=== PATIENT | female | born 1945 | race Caucasian/White ===

== ENCOUNTER 2018-05-05 10:30 | Outpatient (RCR) | payer OTHER, SELFPAY ==
--- NOTE | 2018-03-08 11:00 | HP.OTREVAL ---
Westley Seay, It has been my pleasure to treat TEN BRONSON over the last 8 visits for Mallet Finger. Please see the progress note below for an update on the occupational therapy plan of care! Subjective: Arrived and noted that things going well. Noted lag still present. Objective/Function: Completed new measurements today. Increased extensor lag noted when out of splint and has been wearing splint for all exercises. Completed ROM measurements and are as follows: RF MCP WNL, L 0-86, PIP RWNL, L 0-74- at times hyperext noted, DIP R WNL, L -10--35 of for flexion with inability to active move to extension. Completed extension measurement from neutral pronated position at table top: PIP R WNL , L AROM 0--29; DIP ext/ R WNL, L passively able to move from 0--29. She exhibits very slight extension of DIP when joint is supported. Strength is as follows: Gas Well Drilling Manager 52, L 39 -completed out of splint and extensor lad increased to -18 forward flexed position, lateral R 18, L 15; tripod R 13, L 11 extensor lag post -12 forwardly flexed position. Plan Frequency: 2x /Week Duration: 2-4 Weeks Visits in this POC: 4-8 Plan: continue pOC for 2x weekly for 2-4 weeks. She returns to Dr. Seay tomorrow. We have been trialing low FES to promote increased strength of extensor muscle of hand in and out of splint to help decrease and monitor extensor lag. She was originally fitted with Stax splint that was modified to promote fit. That splint has recently become loose, but she is unable to fit next size down. Gutter splint formed to try and place in 15-degrees hypperext position. Will continue to adjust gutter to promote hyperext. She has been completing exercises in splint due to increased extensor lag with movement. Worked on increased ROM of PIP and extension of DIP, PIP as well as general strength and ability to return to PLOF with L hand. Goals - Goals Goal:: Sarah to increase L combat engineer by 5-7 lbs to promote increased strenght and abilityt o manipulate L hand as needed for ADL/AIDls by d/c. Goal:: Sarah to be able to complete AROM of L MF of PIP, DIP similar to R PIP and DIP to promote increased Jacob nd decreased stiffness of PIP while maintain jt integrity of DIP by d/c. Goal:: Sarah to be (I) to complete all ADl/AIDls with B hand controla nd coordiantion skills to promote increased ROM and strength needed to return to PLOF by d/c. Goal:: Sarah to complete HEP and splint use to prevent deformity and increased Jacob nd strength 4/5 trials 80% of the time to promote returning to PLOF by d/c. Anticipated Interventions Anticipated Interventions: A/AAROM/PROM, Strengthening, Desensitization, Modalities, Orthoses, Joint Protection/Energy Conservation, Ergonomic Education, Fine Motor Coord/Kyree, ADL Training, Caregiver Training, Home Program Please do not hesitate to contact me at [phone] by phone or if you have questions or concerns regarding this new plan of care! Sincerely, Bianca José
--- NOTE | 2018-03-08 15:08 | HP.OTEVAL_ITS ---
Patient's Visit Information TEN BRONSON is a 72 year old F, referred to Occupational Therapy by Westley Seay, with a diagnosis of Mallet Finger. Date of Evaluation: 02/17/18 Occupational Therapist: Bianca José - Subjective Subjective: Noted 9 weeks ago, December 13, was staying at [facility] and noted that went to catch herself in bathroom due to side hurting and hit finger. Noted L MF lagged immediately and when getting back to town later than day went to urgent care. - ROM MP: MF R 16-86, L -3-76 PIP: MF R 0-98, -11-61 DIP: MF R 0-74, L 19-29 - Strength Weave Defect Charting Clerk: R 45, L 35 Lateral Pinch: R 16, L 14 Tripod Pinch: R 12, L 6 - hard - Edema DIP: MF R 5.6 cm, L 5.8 cm - Sensation Sensation Comments: intact; denies numbness or tingling, WFL. - DASH-Disabilities of Arm, Shoulder& Hand DASH Sum: 45 - Hand/Wrist Evaluation Total Score of Pain & Functional Sections: 11 - Goals Goal:: Sarah to increase L manager scheduling by 5-7 lbs to promote increased strength and ability to manipulate L hand as needed for ADL/AIDls by d/c. Goal:: Sarah to be able to complete AROM of L MF of PIP, DIP similar to R PIP and DIP to promote increased Jacob nd decreased stiffness of PIP while maintain jt integrity of DIP by d/c. Goal:: Sarah to be (I) to complete all ADl/IADls with B hand control and coordination skills to promote increased ROM and strength needed to return to PLOF by d/c. Goal:: Sarah to complete HEP and splint use to prevent deformity and increased ROM and strength 4/5 trials 80% of the time to promote returning to PLOF by d/c. - Rehabilitation General Assessment: Sarah arrived for OT evaluation on this date, 02/17/18, due to mallet finger of L MF The initial injury occurred about 9 weeks ago and she has been splinted since. MF PIP is becoming stiff and ROM and strengthening needed to promote tendon pull and decrease extensor lag to further decrease risk of deformity. She has been provided at [facility] splint for mallet finger related injuries to promote slight hyperext position to align L MF DIP. OT will work on regain tendon pull, strengthening, ROM, and general education to help prevent deformity. Rehabilitation Potential: Good - Anticipated Interventions Anticipated Interventions: A/AAROM/PROM, Strengthening, Desensitization, Modalities, Orthoses, Joint Protection/Energy Conservation, Ergonomic Education, Fine Motor Coord/Kyree, ADL Training, Caregiver Training, Home Program - Visit Plan Frequency: 2x /Week Duration: 4 Weeks General Plan: OT to work on increased ROM, strength, and alignmen to decrease risk of deformitity and promote increased ability to use hand at PLOF. TEXT: Thank you for the opportunity to evaluate your patient. For Medicare and Medicare HMO plans, please review the plan of care and approve it. It will need to be FAXED BACK to us at [phone] for Medicare purposes. Please let me know if there are questions or concerns regarding this plan of care. Physician Signature: Date:
--- NOTE | 2018-03-30 11:16 | HP.OTREVAL ---
Westley Seay, It has been my pleasure to treat TEN BRONSON over the last 15 visits for Mallet Finger. Please see the progress note below for an update on the occupational therapy plan of care! Subjective: Arrived and noted returning to doctor on Wednesday. Feels about 80% back to normal but noted unable to do much with hand and finger due to being in brace for all ADL/IADLS. Objective/Function: Completed new measurements on this date: ROM: L MF. DIP -5-0-34. PIP 0-0-84. MCP -12-0-87. Strength with splint on: project development director R74 L 50 lbs. Strength splint off: project development director L 50 increased lag noted to 10 degrees at L MF DIP. Still some lag noted at 2 degrees without movement; After 10x reps of fisted grasp increased lag to 8 degrees. Lag has decreased from previous measurements but still present. Plan Frequency: 1x/Week Duration: 2-4 Weeks Visits in this POC: 22 Plan: continue POC. Progress is slow but progressing. Schedule 1-2x follow up post doctor appointment. Continue HEP as instructed. Will adjust strengthening protocol depending on Pt. report from doctor. Goals - Goals Goal:: Sarah to increase L project development director by 5-7 lbs to promote increased strenght and ability to manipulate L hand as needed for ADL/AIDls by d/c. Goal:: Sarah to be able to complete AROM of L MF of PIP, DIP similar to R PIP and DIP to promote increased ROM and decreased stiffness of PIP while maintain jt integrity of DIP by d/c. Goal:: Sarah to be (I) to complete all ADl/IADls with B hand control and coordination skills to promote increased ROM and strength needed to return to PLOF by d/c. Goal:: Sarah to complete HEP and splint use to prevent deformity and increased ROM and strength 4/5 trials 80% of the time to promote returning to PLOF by d/c. Anticipated Interventions Anticipated Interventions: A/AAROM/PROM, Strengthening, Desensitization, Modalities, Orthoses, Joint Protection/Energy Conservation, Ergonomic Education, Fine Motor Coord/Kyree, ADL Training, Caregiver Training, Home Program Please do not hesitate to contact me at [phone] by phone or if you have questions or concerns regarding this new plan of care! Sincerely, Bianca José
--- NOTE | 2018-04-08 15:12 | HP.OTREVAL ---
Westley Seay, It has been my pleasure to treat TEN BRONSON over the last 17 visits for Mallet Finger. Please see the progress note below for an update on the occupational therapy plan of care! Subjective: Arrived and noted post appointment with doctor. Dr. Seay noted she is to jon tape and wear oval 8 splint. Objective/Function: After flexion tasks extensor lag noted at 8 degrees. ROM measurements as follows: PIP 0-73. DIP: 8-39. Strength measurements: thread singer 66/54 Plan Frequency: 2 Duration: every other week Visits in this POC: 2 Plan: Change of POC to continue 2x more sessions every other week. First follow up in two weeks. If doing well with HEP she will be d/c'd. She is to wear oval 6 during typing tasks and jon tape during other tasks. Extensor lag is still present. Goals - Goals Goal:: Sarah to increase L thread singer by 5-7 lbs to promote increased strenght and ability to manipulate L hand as needed for ADL/AIDls by d/c. Goal:: Sarah to be able to complete AROM of L MF of PIP, DIP similar to R PIP and DIP to promote increased ROM and decreased stiffness of PIP while maintain jt integrity of DIP by d/c. Goal:: Sarah to be (I) to complete all ADl/IADls with B hand control and coordination skills to promote increased ROM and strength needed to return to PLOF by d/c. Goal:: Sarah to complete HEP and splint use to prevent deformity and increased ROM and strength 4/5 trials 80% of the time to promote returning to PLOF by d/c. Anticipated Interventions Anticipated Interventions: A/AAROM/PROM, Strengthening, Desensitization, Modalities, Orthoses, Joint Protection/Energy Conservation, Ergonomic Education, Fine Motor Coord/Kyree, ADL Training, Caregiver Training, Home Program Please do not hesitate to contact me at [phone] by phone or if you have questions or concerns regarding this new plan of care! Sincerely, Bianca José
--- NOTE | 2018-05-05 11:31 | HP.OTDCSUM ---
HP - OT D/C Summary It has been my pleasure to treat TEN BRONSON under orders from Westley Seay, for the diagnosis of Mallet Finger for a total of 17 visit(s). Please see the following information for a summary of their discharge status. - Overall Improvement % Improvement: 80 - Objective Objective/Function: Completed reassessment today. Results are as follows: ROM: MF DIP R WNL, L extensor lag at 16 degrees able to move from 16 ? 42 for flexion. Slight movement noted at L MF DIP with pull palpated but not able to actively move to neutral position. Additionally, increased extensor lag still noted with all flexion tasks. MF PIP R WNL, L -11-79- hyperextension of joint noted. Strength with oval 8 on: hand silvering supervisor R 65, L 65. lateral R 16, L 15. three jaw R 15, L 13. tip pinch R 13, L 13. Strength has improved with oval 8 on but extensor lag has regressed from previous measurements. - Goals Patient Goals: Regain Mobility, Regain Strength, Decrease Pain, Decrease Swelling/Stiffness, Improve Fine Motor Skills, Use Hand/Wrist/Arm Normally Again, Sleep Better, Increase ROM, Be More Independent in ADLS, Resume Former Household Responsibilities (Cooking,Cleaning,Yard, etc.), Resume Hobbies Goal:: Sarah to increase L hand silvering supervisor by 5-7 lbs to promote increased strenght and ability to manipulate L hand as needed for ADL/AIDls by d/c. Goal:: Sarah to be able to complete AROM of L MF of PIP, DIP similar to R PIP and DIP to promote increased ROM and decreased stiffness of PIP while maintain jt integrity of DIP by d/c. Goal:: Sarah to be (I) to complete all ADl/IADls with B hand control and coordination skills to promote increased ROM and strength needed to return to PLOF by d/c. Goal:: Sarah to complete HEP and splint use to prevent deformity and increased ROM and strength 4/5 trials 80% of the time to promote returning to PLOF by d/c. - Plan Plan: Pt. will be d/c'd today. She is to start wearing stax splint again at night as increased lag noted. She is to wear oval 8-6 during the day. If extensor lag is to increase she is to return to Dr. Seay. - D/C Information If there are questions or concerns regarding this patient's occupational therapy, please fell free to call me at [phone]. Thank you for the referral of this patient. Sincerely, Bianca José
== END 2018-05-05 19:00 | disposition home or self-care (01) ==
LOC: OT 10:30
PROVIDERS: Family Provider Family Medicine; PCP Family Medicine; Visit Provider Family Medicine
DX: M20.012 Mallet finger of left finger(s) (principal)
CPT/HCPCS: 97032; 97110; 97166; 97168; 97530; 97763

== ENCOUNTER 2020-08-05 13:27 | Outpatient (RCR) | payer OTHER, SELFPAY | END 2020-08-05 23:59 | LOC: IMMUN 13:27 | PROVIDERS: PCP Family Medicine; Visit Provider Family Medicine | DX: Z23 Encounter for immunization (principal) | CPT/HCPCS: 0011A; 0012A ==

== ENCOUNTER 2024-08-09 14:54 | Outpatient (RCR) | payer MEDICARE, OTHER, SELFPAY | END 2024-09-04 23:59 | LOC: NS 14:54 | PROVIDERS: PCP Family Medicine; Referring Provider Orthopaedic Surgery; Visit Provider Orthopaedic Surgery | DX: N18.31 Chronic kidney disease, stage 3a (principal); Z71.3 Dietary counseling and surveillance | CPT/HCPCS: 97802 ==